=== PATIENT | female | born 1980 | race Caucasian/White ===

== ENCOUNTER 2017-04-25 08:12 | Emergency (ER) | payer OTHER ==
[~2017-04-25] VITALS: Wt 61.6 kg
[2017-04-25] MEDS ORDERED: ONDANSETRON 4 MG INJ IV STA (08:35)
[2017-04-25] MEDS ORDERED: FAMOTIDINE 20 MG INJ IV STA (08:35)
[2017-04-25] MEDS ORDERED: morphine 4 MG/ML VIAL IV STA ×3 (08:35→11:09)
[2017-04-25] MEDS ORDERED: SOD CHLORIDE 0.9% 1,000 ML IV STA (08:35)
--- NOTE | 2017-04-25 08:41 | ERD ---
ER Documentation Chief Complaint Chief Complaint ap since last night HPI Patient is a 36-year-old female who presents with sudden onset, constant, severe epigastric pain since 4 AM. She reports one episode of nonbloody, nonbilious emesis. She denies fever or diarrhea. She reports history of pancreatitis due to hypertriglyceridemia last episode 3-4 years ago. She reports drinking 2 glasses of wine last night. She states that her pain is not similar to her prior episode of pancreatitis. ROS All systems reviewed and are negative except as per history of present illness. Allergies Allergies: Coded Allergies: zolpidem (Verified Allergy, Intermediate, medical noncompliance & out of body experiences, 04/25/17) PMhx/Soc Past medical history: Pancreatitis, hypertriglyceridemia Past surgical history: Denies Social history: Reports occasional alcohol, denies drugs or tobacco Last menstrual: April 13 FmHx Noncontributory Physical Exam Vitals Vital Signs Date Time Temp Pulse Resp B/P Pulse Ox O2 Delivery O2 Flow Rate FiO2 04/25/17 12:00 98.4 96 16 117/62 98 Room Air 04/25/17 08:13 97.7 110 20 170/90 99 Physical Exam Const: Alert, in mild distress, strong odor of alcohol on breath Head: Atraumatic Eyes: Normal Conjunctiva, pallor, no icterus ENT: Normal External Ears, Nose and Mouth. Moist mucous membranes Neck: Full range of motion.eningismus. Resp: Clear to auscultation bilaterally, no wheezes, no rales Cardio: Mild tachycardia, regular rhythm, no murmurs Abd: Soft, mild tenderness in epigastrium only, non distended. No rebound or guarding Skin: No petechiae or rashes Back: No midline or flank tenderness Ext: No cyanosis, or edema Neur: Awake and alert, cranial nerves II through XII intact bilaterally, strength and sensation full in 4 extremities, no tremor Psych: Normal Mood and Affect Result Diagram: 04/25/1730 04/25/1730 Results 24 hrs Laboratory Tests Test 04/25/17 08:30 White Blood Count 11.910^3/ul Red Blood Count 4.1110^6/ul Hemoglobin 14.1g/dl Hematocrit 40.4% Mean Corpuscular Volume 98.3fl Mean Corpuscular Hemoglobin 34.3pg Mean Corpuscular Hemoglobin Concent 34.9g/dl Red Cell Distribution Width 12.7% Platelet Count 38501^3/UL Mean Platelet Volume 9.8fl Neutrophils % 74.7% Lymphocytes % 19.4% Monocytes % 4.1% Eosinophils % 0.6% Basophils % 0.7% Nucleated Red Blood Cells % 0.0/100WBC Neutrophils # 8.910^3/ul Lymphocytes # 2.310^3/ul Monocytes # 0.510^3/ul Eosinophils # 0.110^3/ul Basophils # 0.110^3/ul Nucleated Red Blood Cells # 0.010^3/ul Sodium Level 141mmol/L Potassium Level 3.5mmol/L Chloride Level 103mmol/L Carbon Dioxide Level 24mmol/L Anion Gap 18 Blood Urea Nitrogen 10mg/dl Creatinine 0.75mg/dl Glucose Level 151mg/dl Calcium Level 9.2mg/dl Total Bilirubin 0.5mg/dl Direct Bilirubin 0.00mg/dl Indirect Bilirubin 0.5mg/dl Aspartate Amino Transf (AST/SGOT) 148IU/L Alanine Aminotransferase (ALT/SGPT) 82IU/L Alkaline Phosphatase 129IU/L Total Protein 7.9g/dl Albumin 4.2g/dl Globulin 3.70g/dl Albumin/Globulin Ratio 1.13 Lipase 2697U/L Serum HCG, Qualitative NEGATIVE Ethyl Alcohol Level 121.0mg/dl Current Medications Medications (Trade) Dose Ordered Sig/Hazel Route PRN Reason Start Time Stop Time Status Last Admin Dose Admin Sodium Chloride (NS) 1,000 ml @ 1,000 mls/hr Q1H STAT IV 04/25/17 08:35 04/25/17 09:34 DC 04/25/17 08:50 Morphine Sulfate (morphine) 4 mg ONCE STAT IV 04/25/17 08:35 04/25/17 08:37 DC 04/25/17 08:49 Ondansetron HCl (Zofran Inj) 4 mg ONCE STAT IV 04/25/17 08:35 04/25/17 08:37 DC 04/25/17 08:48 Famotidine (Pepcid Iv) 20 mg ONCE STAT IV 04/25/17 08:35 04/25/17 08:37 DC 04/25/17 08:48 Lorazepam (Ativan) 0.5 mg ONCE ONCE IV 04/25/17 09:30 04/25/17 09:31 DC 04/25/17 09:27 Morphine Sulfate (morphine) 4 mg ONCE STAT IV 04/25/17 09:56 04/25/17 10:01 DC 04/25/17 11:22 Ondansetron HCl (Zofran Inj) 4 mg BRIDGE ORDER PRN IV NAUSEA AND/OR VOMITING 04/25/17 10:30 04/25/17 12:16 DC Acetaminophen (Tylenol Tab) 650 mg ER BRIDGE PRN PO MILD PAIN/FEVER 04/25/17 10:30 04/25/17 12:16 DC Morphine Sulfate (morphine) 4 mg ONCE STAT IV 04/25/17 11:09 04/25/17 11:10 DC 04/25/17 11:53 Procedures/MDM MDM: Patient is a 36-year-old female with history of pancreatitis who presents to the ER with epigastric pain and is found to have a lipase that is more than 3 times the upper limit of normal, consistent with acute pancreatitis. The patient reports drinking a few glasses of wine last night, but has a alcohol level of 121 in the emergency department, suggestive of heavy alcohol use or more recent alcohol use. I suspect that this is the cause of her pancreatitis. Has no evidence of gallstones or other hepatobiliary abnormality on ultrasound. She will be transferred based on insurance for inpatient treatment of pancreatitis and slow advancement of diet. She required multiple doses of IV narcotics in the ER for pain control. Departure Diagnosis: Primary Impression: Pancreatitis Chronicity: acute Pancreatitis type: alcohol induced Acute pancreatitis complication: unspecified Qualified Code: K85.20 - Alcohol-induced acute pancreatitis, unspecified complication status Additional Impression: Alcohol intoxication Complication of substance-induced condition: uncomplicated Qualified Code: F10.920 - Alcoholic intoxication without complication Condition: SANDRA Victoria MD Apr 25, 2017 08:41
[2017-04-25 08:55] LABS: BASOPHIL # 0.1 10^3/ul (0.0-0.1); BASOPHILS % 0.7 % (0.0-2.0); EOSINOPHILS # 0.1 10^3/ul (0.0-0.5); EOSINOPHILS % 0.6 % (0.0-7.0); HEMATOCRIT 40.4 % (37.0-47.0); HEMOGLOBIN 14.1 g/dl (12.0-16.0); LYMPHOCYTES # 2.3 10^3/ul (0.8-2.9); LYMPHOCYTES % 19.4 % (15.0-51.0); MEAN CORPUSCULAR HEMOGLOBIN 34.3 pg (29.0-33.0); MEAN CORPUSCULAR HGB CONC 34.9 g/dl (32.0-37.0); MEAN CORPUSCULAR VOLUME 98.3 fl (82.0-101.0); MEAN PLATELET VOLUME 9.8 fl (7.4-10.4); MONOCYTE # 0.5 10^3/ul (0.3-0.9); MONOCYTES % 4.1 % (0.0-11.0); NEUTROPHIL # 8.9 10^3/ul (1.6-7.5); NEUTROPHILS % 74.7 % (39.0-77.0); PLATELET COUNT 194 10^3/UL (140-415); RED BLOOD COUNT 4.11 10^6/ul (4.20-5.40); RED CELL DISTRIBUTION WIDTH 12.7 % (11.5-14.5); WHITE BLOOD COUNT 11.9 10^3/ul (4.8-10.8)
[2017-04-25 09:13] LABS: ALBUMIN 4.2 g/dl (3.3-4.9); ALBUMIN/GLOBULIN RATIO 1.13; BILIRUBIN,INDIRECT 0.5 mg/dl (0-1.1); BILIRUBIN,TOTAL 0.5 mg/dl (0.2-1.3); CALCIUM 9.2 mg/dl (8.4-10.2); CREATININE 0.75 mg/dl (0.44-1.00); POTASSIUM 3.5 mmol/L (3.5-5.1); TOTAL PROTEIN 7.9 g/dl (6.1-8.1)
[2017-04-25] MEDS ORDERED: LORAZEPAM 2 MG INJ IV ONE (09:30)
[2017-04-25] MEDS ORDERED: ONDANSETRON 4 MG INJ IV PRN (10:30)
[2017-04-25] MEDS ORDERED: ACETAMINOPHEN 325 MG TAB PO PRN (10:30)
--- NOTE | 2017-04-25 10:42 | RADRPT ---
PROCEDURE: US Abdomen (right upper quadrant). CLINICAL INDICATION: Severe abdominal pain TECHNIQUE: Multiple real-time longitudinal and transverse images of the right upper quadrant of th e abdomen were acquired utilizing a curved array transducer. Images were reviewed on a high-resoluti on PACS workstation. COMPARISON: None FINDINGS: Liver: The liver is mildly enlarged (18.6 cm) and fatty infiltrated, without gross sonographic evide nce of focal hepatic mass. There is normal hepatopedal flow in the main portal vein. Gallbladder: Normal. No gallstone or gallbladder wall thickening. Biliary tree: No biliary dilatation. Common duct diameter is 5.7 mm. Pancreas: Normal. Right kidney: Length measures 10.1 cm. No renal mass, calculus, hydronephrosis or perinephric fluid. Vascular: Not visualized. Other: Indeterminate 2.4 cm shadowing echogenic structure is seen in the region of the lucille hepatis . IMPRESSION: 1. Hepatic steatosis and mild hepatomegaly are noted. 2. No cholelithiasis, cholecystitis or biliary dilatation is identified. 3. Indeterminate 2.4 cm shadowing echogenic structure is seen in the region of the lucille hepatis, p ossibly calcified lymph node or prominent bowel gas in this location. CT may be useful for further e valuation, if clinically warranted. RPTAT: QQ .Berhane Whitman MD, MD Date Time Electronically viewed and signed by .Berhane Whitman MD, MD on 04/25/2017 10:42 .R/
[2017-04-25 12:00] VITALS: BP 117/62; PULSE 96; RESP 16; TEMP 98.4
== END 2017-04-25 12:16 | disposition short-term general hospital (02) ==
LOC: E/R 08:12
DX: K85.20 Alcohol induced acute pancreatitis without necrosis or infection (principal); F10.920 Alcohol use, unspecified with intoxication, uncomplicated; R10.2 Pelvic and perineal pain
CPT/HCPCS: 36415; 76705; 80053; 80306; 83690; 84703; 85025; 96361; 96374; 96375; 96376; J2060; J2270; J2405; J7030; Z7502; Z7610